=== PATIENT | female | born 1980 | race Caucasian/White ===

== ENCOUNTER 2025-01-03 16:29 | Emergency (ER) | payer OTHER, SELFPAY ==
[2025-01-03 16:30] VITALS: BP 140/82
--- NOTE | 2025-01-03 17:00 | ED.GENMED ---
History of Present Illness
General
Chief Complaint: Cold/Flu/URI Symptoms
Source: patient
Exam Limitations: none
Time Seen by Provider: 01/03/25 16:50
History of Present Illness
History of Present Illness:
44-year-old otherwise healthy female presents with 6 days worth of cough fatigue nausea headache and fever. She had a sore throat at the onset of her illness. No chest pain. No vomiting. No diarrhea. She denies any significant abdominal pain.
The cough is dry nonproductive. Her kids are sick with the flu recently. No other complaints at this time
Phy Exam
Physical Exam
Physical Exam:
General: Well-developed female no acute respiratory distress
HEENT: Normocephalic atraumatic mucosa dry neck is supple no adenopathy posterior pharynx without erythema or asymmetry
Heart: Regular rate and rhythm no murmurs
Lungs: Clear no wheeze
Abdomen is soft nontender nondistended no guarding or rebound
Neurologic exam: No meningeal signs. No nuchal rigidity.
Skin is warm no rash
Course
Orders/Labs/Results
Orders:
Orders
01/03/25 16:36
COVID-19 Antigen Urgent
Source: Nasal Swab
Influenza A+B Rapid Molecular Urgent
HELADIO Source: Nasal Swab
Specimen Description:
01/03/25 16:59
0.9% Sodium Chloride 1000 ml [Nss] 1,000 ml IV BOLUS
Acetaminophen [Tylenol] 1,000 mg PO NOW STA
Ketorolac [Toradol] 15 mg IV NOW STA
Ondansetron Injectable [Zofran] 4 mg IV NOW STA
CR Chest - 2 Views Urgent
Comment:
Reason For Exam: cough, fever
01/03/25 17:20
Complete Blood Count/With Diff Urgent
Comprehensive Metabolic Panel Urgent
01/03/25 18:26
Diphenhydramine [Benadryl] 25 mg IV NOW STA
Prochlorperazine [Compazine] 10 mg IV NOW STA
Abnormal Lab Results
01/03/25
17:20
WBC 4.4 L 10^3/uL
(4.8-10.8)
01/03/25 17:20
01/03/25 17:20
Vital Signs
Initial and Last Documented VS:
Initial Vital Signs
Temp Pulse Resp BP Pulse Ox
98.0 F 83 18 140/82 100
01/03/25 16:30 01/03/25 16:30 01/03/25 16:30 01/03/25 16:30 01/03/25 16:30
Last Documented Vital Signs
Temp Pulse Resp BP Pulse Ox
98.4 F 76 18 110/76 99
01/03/25 18:57 01/03/25 18:57 01/03/25 16:30 01/03/25 19:54 01/03/25 18:57
MDM/Problems Addressed
Differential Diagnosis Includes:
Fatigue fever cough headache. Question viral illness such as COVID or flu. These tests are pending. Will check chest x-ray to evaluate for pneumonia. Labs ordered to evaluate for electrolyte abnormality. Treat symptomatically with Zofran
Toradol Tylenol fluids
*Critical Care Note
Total Time (30-74mins, 75-104mins- exclusive of procedures): Not Applicable
Update Note
Update Note:
Patient tested positive for influenza. Chest x-ray clear. Patient feeling better after fluids Toradol Tylenol and a migraine cocktail. Recommended continued hydration and supportive care at home. Will prescribe Zofran if needed for nausea
ED Attending Note
-
Portions of this chart may have been created with voice recognition software.� Occasional wrong word or��sound alike� substitutions may have occurred due to the inherent limitations of voice recognition software.
Discharge Plan
Departure
Patient Disposition: Home (Routine Discharge)
Date of Disposition: 01/03/25
Time of Disposition: 20:07
Patient with high blood pressure during this ER visit?: No
Discharge Problem:
Influenza
Instructions: Flu in adults - Discharge instructions
Prescriptions:
New
ondansetron 4 mg tablet,disintegrating
4 mg PO Q8H PRN (Reason: nausea and vomiting) Qty: 10 0RF
Referrals:
NONE,* [Family Provider] -
Activity Restrictions/Additional Instructions:
Rest. Stay hydrated. Use ibuprofen or Tylenol for fever or headache. Use Zofran if needed for nausea. Return if worse otherwise follow-up with your
Interventions
Interventions:
*Risk Screen - Suicide Last Done: 01/03/25 16:30
*General Assessment Last Done: 01/03/25 16:30
*Neglect/Abuse Screening Last Done: 01/03/25 19:54
*ED- Fall Risk Assessment Last Done: 01/03/25 19:54
*ED COVID-19 Vaccine History Last Done: 01/03/25 16:30
*Nursing Disposition Last Done: 01/03/25 19:54
ED- Pulmonary Assessment Last Done: 01/03/25 17:43
Discharge Date and Time
Print Language: THAI
[2025-01-03 17:06] LABS: COVID-19 Antigen Negative (Negative)
[2025-01-03] MEDS: NSS 1000 IV (17:20)
[2025-01-03] MEDS: ZOFRAN 4 MG IV (17:21)
[2025-01-03] MEDS: TORADOL 15 MG IV (17:21)
[2025-01-03] MEDS: TYLENOL 1000 MG PO (17:21)
[2025-01-03 17:32] LABS: % Basophils 0.2 % (0-2); % Immature Granulocytes 0.2 % (0-0.5); % Lymphocytes 42.1 % (20.5-51.1); % Monocytes 8.1 % (1.7-9.3); % Neutrophils 49.4 % (42.2-75.2); Absolute Lymphocytes 1.9 10^3/uL (1.2-3.4); Absolute Monocytes 0.4 10^3/uL (0.1-0.6); Absolute Neutrophils 2.2 10^3/uL (1.4-6.5); Hematocrit 37.7 % (37.0-47.0); Hemoglobin 13.1 g/dL (12.0-16.0); Mean Corp Hgb Conc. 34.7 g/dL (33.0-37.0); Mean Corpuscular Hgb 28.4 pg (27.0-31.0); Mean Corpuscular Volume 81.8 fL (81.0-99.0); Mean Platelet Volume 10.4 fL (7.4-10.4); Nucleated Red Blood Cells % 0 %; Platelet Count 249 10^3/uL (130-400); Red Blood Cell Count 4.61 10^6/uL (4.20-5.40); Red Cell Dist. Width 12.3 % (11.5-14.5); White Blood Cell Count 4.4 10^3/uL (4.8-10.8)
[2025-01-03 17:49] LABS: ALT (SGPT) 22 U/L (0-35); AST (SGOT) 25 U/L (14-36); Albumin 4.5 g/dl (3.5-5.0); Alkaline Phosphatase 58 U/L (38-126); Blood Urea Nitrogen 11 mg/dl (7-17); Calcium 9.4 mg/dl (8.4-10.2); Carbon Dioxide 22 mmol/L (22-30); Chloride 105 mmol/L (98-107); Glucose 92 mg/dl (70-99); Potassium 4.1 mmol/L (3.5-5.1); Sodium 138 mmol/L (135-145); Total Bilirubin 0.4 mg/dl (0.2-1.3); Total Protein 8.2 g/dl (6.3-8.2); eGFR > 60.00
[2025-01-03] MEDS: BENADRYL 25 MG IV (18:31)
[2025-01-03] MEDS: COMPAZINE 10 MG IV (18:32)
[2025-01-03 18:57] VITALS: BP 125/84
[2025-01-03 19:54] VITALS: BP 110/76
== END 2025-01-03 20:20 | disposition home or self-care (01) ==
LOC: EMR 16:29
PROVIDERS: Physician Assistant; EMERGENCY PHYSICIAN Emergency Medicine
DX: J11.1 Influenza due to unidentified influenza virus with other respiratory manifestations (principal); R11.0 Nausea; R51.9 Headache, unspecified; Z11.52 Encounter for screening for COVID-19; Z88.1 Allergy status to other antibiotic agents
CPT/HCPCS: 99284; 96374; 96375 ×3; 96361; 71046; 80053; 85025; 87502; 87811

== ENCOUNTER → 2025-05-26 09:24 | Outpatient (REF) | payer OTHER, SELFPAY | LOC: HWRAD 09:24 | PROVIDERS: ATTENDING PHYSICIAN Nurse Practitioner Adult Health | DX: R10.11 Right upper quadrant pain (principal) | CPT/HCPCS: 76700 ==

== ENCOUNTER → 2025-06-24 13:22 | Outpatient (REF) | payer OTHER, SELFPAY | LOC: WDC 13:22 | PROVIDERS: ATTENDING PHYSICIAN Nurse Practitioner Adult Health | DX: Z12.31 Encounter for screening mammogram for malignant neoplasm of breast (principal) | CPT/HCPCS: 77063; 77067 ==

== ENCOUNTER → 2025-07-08 08:04 | Outpatient (REF) | payer OTHER, SELFPAY | LOC: RAD 08:04 | PROVIDERS: ATTENDING PHYSICIAN Nurse Practitioner Adult Health | DX: R10.11 Right upper quadrant pain (principal) | CPT/HCPCS: 78227; A9537; J2805 ==

== ENCOUNTER 2025-08-06 06:17 | Day surgery (SDC) | payer OTHER, SELFPAY ==
[2025-07-30 11:02] LABS: Hematocrit 34.4 % (37.0-47.0); Hemoglobin 11.3 g/dL (12.0-16.0); Mean Corp Hgb Conc. 32.8 g/dL (33.0-37.0); Mean Corpuscular Volume 83.3 fL (81.0-99.0); Platelet Count 267 10^3/uL (130-400); Red Cell Dist. Width 12.6 % (11.5-14.5)
[2025-07-30 11:56] LABS: ALT (SGPT) 16 U/L (0-35); AST (SGOT) 22 U/L (14-36); Albumin 4.6 g/dl (3.5-5.0); Alkaline Phosphatase 44 U/L (38-126); Blood Urea Nitrogen 12 mg/dl (7-17); Calcium 9.1 mg/dl (8.4-10.2); Carbon Dioxide 28 mmol/L (22-30); Chloride 107 mmol/L (98-107); Glucose 85 mg/dl (70-99); Potassium 4.7 mmol/L (3.5-5.1); Sodium 140 mmol/L (135-145); Total Protein 7.7 g/dl (6.3-8.2); eGFR > 60.00
[2025-07-30 14:04] VITALS: BMI 27.8
[2025-08-06] VITALS (10 sets, daily range): BP systolic 101–123; BP diastolic 58–79; BMI 27.8
[2025-08-06] MEDS: EMEND 40 MG PO (10:51)
[2025-08-06] MEDS: TYLENOL 1000 MG PO (10:52)
[2025-08-06] MEDS: NORMOSOL-R/PLASMALYTE-A 1000 IV (11:05)
[2025-08-06] MEDS: DILAUDID 0.5 MG IV (13:12)
[2025-08-06] MEDS: DILAUDID 0.25 MG IV ×3 (13:26→13:58)
[2025-08-06] MEDS: TORADOL 30 MG IV (15:27)
--- NOTE | 2025-08-06 15:30 | PTCARENOTE ---
Pt c/o moderate level pain in RUQ since arrival to [facility] but has been sleeping on & off. After waking up pt reported pain level of 10/10. RN reached out to Dr Chaparro as well as anesthesia. CHICKEN BONER came to see pt in [facility] and ordered stat dose of 30mg
toradol IV. Medication given as ordered, will continue to monitor.
== END 2025-08-06 16:50 | disposition home or self-care (01) ==
LOC: SDS 06:17
PROVIDERS: ATTENDING PHYSICIAN Surgery; FAMILY PHYSICIAN Nurse Practitioner Adult Health
DX: K81.9 Cholecystitis, unspecified (principal)
CPT/HCPCS: 47563; 36415; 74300; 76000; 80053; 85027; 88304; A4300